=== PATIENT | male | born 1955 | race Caucasian/White ===

== ENCOUNTER 2017-05-18 13:11 | Emergency (ER) | payer BC ==
[~2017-05-18] VITALS: Ht 172.7 cm; Wt 101.5 kg
[~2017-05-18 13:11] MED LIST: ALLO100T PO; CALCTAB5 PO; COLC0.6T54 PO; FERR1TAB23 PO; FLM4 PO; METH4PAK4 PO; METO-478 PO; PANT1TAB3 PO; PRED10TA PO
[2017-05-18 13:16] VITALS: TEMP 36.4; Ht 172.7 cm; Wt 101.5 kg
[2017-05-18] MEDS ORDERED: KETOROLAC TROMETHAMINE 30 MG/ML VIAL IV STA (13:41)
[2017-05-18] MEDS ORDERED: SODIUM CHLORIDE 0.9% 1000ML 1,000 ML IV ONE (13:45)
[2017-05-18 14:12] LABS: BASO % 0.3 %; BASO ABS # 0.03 K/uL (0-0.2); EOS % 0.3 %; EOS ABS # 0.03 K/uL (0-0.5); HEMATOCRIT 29.4 % (42-52); HEMOGLOBIN 9.4 g/dL (14.0-18.0); IG# 0.03 K/uL (0.00-0.02); LYMPH % 21.9 %; LYMPH ABS # 1.91 K/uL (1.2-3.4); MEAN CORPUSCULAR HEMOGLOBIN 25.9 pg (25-34); MEAN PLATELET VOLUME 8.7 fL (7.4-10.4); MONO ABS # 0.61 K/uL (0.11-0.59); NEUT % 70.2 %; NEUT ABS # 6.13 K/uL (1.4-6.5); PLATELET COUNT 309 K/uL (130-400); RED CELL DISTRIBUTION WIDTH CV 14.8 % (11.5-14.5); RED CELL DISTRIBUTION WIDTH SD 43.6 fL (36.4-46.3); WHITE BLOOD COUNT 8.74 K/uL (4.8-10.8)
[2017-05-18] MEDS ORDERED: CALC-393 PO (14:16)
[2017-05-18] MEDS ORDERED: CIPR1TAB11 PO (14:17)
[2017-05-18] MEDS ORDERED: OMEP20CA9 PO (14:17)
--- NOTE | 2017-05-18 14:20 | DIAGNOSTIC IMAGING REPORT ---
ABD/PELVIS WITHOUT FOR STONE CT DOSE: 988.49 mGycm HISTORY: Flank pain L flank LLQ pain TECHNIQUE: Multiaxial CT images of the abdomen and pelvis were performed without the use of intravenous and oral contrast according to the standard department stone protocol. A dose lowering technique was utilized adhering to the principles of ALARA. COMPARISON STUDY: None. FINDINGS: Lung bases are clear. Liver spleen and pancreas are unremarkable. 2 mm nonobstructing calcification of the mid left kidney. Kidneys are negative for hydronephrosis. There is no evidence for an obstructing urinary tract calculus. Bowel pattern is nonobstructive. The appendix is normal. There is mild aneurysmal dilatation of the infrarenal abdominal aorta at 3.2 cm. Dilation of the colon shows evidence for moderate wall thickening of the sigmoid with several diverticuli present. There is moderate pericolonic infiltrative change suggesting a component of acute diverticulitis. There is no evidence for abscess or collection. there is moderate bladder wall thickening. Appears be a very small urachal remnant. The osseous structures show blastic bony changes throughout the thoracolumbar spine and bony pelvis suggesting potential metastatic disease. IMPRESSION: 1. Moderate acute sigmoid diverticulitis.. 2. Moderate pericolonic infiltrative change, although there is no evidence for abscess or collection. 3. Findings consistent with blastic bony metastatic change throughout the spine, bony pelvis, and hips. 4. Moderate bladder wall thickening. The above report was generated using voice recognition software. It may contain grammatical, syntax or spelling errors. Electronically signed by: Elias Bates M.D. 05/18/2017 2:18 PM Dictated Date/Time: 05/18/2017 2:11 PM
--- NOTE | 2017-05-18 14:24 | EMERGENCY ROOM VISIT NOTE ---
History First contact with patient: 13:27 Chief Complaint: FLANK PAIN Stated Complaint: BACK PAIN IN LEFT SIDE History of Present Illness The patient is a 62 year old male who presents to the Emergency Room with complaints of left lower abdominal pain has now moved to the left flank for the last several days. He describes it as a severe dull ache that comes in waves. He denies any hematuria. He has had a difficult time urinating. He denies any fever, chills, nausea or vomiting. No dizziness. No changes in bowel movements. The patient reports a history of stage IV metastatic prostate cancer. He has not taken anything for pain Review of Systems 10 system review performed and negative unless noted in HPI or below Past Medical/Surgical History Stage IV metastatic prostate cancer Social History Smoking Status: Current Every Day Smoker Alcohol Use: occasionally Drug Use: none Housing Status: lives with family Occupation Status: employed Current/Historical Medications Scheduled Allopurinol (Zyloprim), 100 MG PO DAILY Calcium Carbonate (Calcium), 600 MG PO BID Ciprofloxacin Tab (Cipro), Unknown Dose PO BID Ferrous Sulfate (Iron), 325 MG PO DAILY Metoprolol Succinate (Toprol Xl), 25 MG PO DAILY Metronidazole (Flagyl), 500 MG PO TID Omeprazole (Prilosec), 20 MG PO DAILY Prednisone Tab (Prednisone), 10 MG PO BID Tramadol Hcl (Ultram), 50 MG PO Q4H Physical Exam Vital Signs Date Time Temp Pulse Resp B/P (MAP) Pulse Ox O2 Delivery O2 Flow Rate FiO2 05/18/17 15:15 68 16 118/70 96 Room Air 05/18/17 13:16 36.4 84 18 156/67 96 Room Air Physical Exam VITALS: Vitals are noted on the nurse's note and reviewed by myself. Vital signs stable. GENERAL: 62-year-old male, in moderate discomfort,, SKIN: The skin was without rashes, erythema, edema, or bruising. HEAD: Normocephalic atraumatic. MOUTH: Mucous membranes slightly dry NECK: Supple without nuchal rigidity. . No JVD. HEART: Regular rate and rhythm without murmurs gallops or rubs. LUNGS: Clear to auscultation bilaterally without wheezes, rales or rhonchi. No accessory muscle use. ABDOMEN: Positive bowel sounds x 4.Soft, nontender, without organomegaly. No guarding or rebound tenderness. Left-sided CVA tenderness noted MUSCULOSKELETAL: No muscle atrophy, erythema, or edema noted. Strength 5/5 throughout. NEURO: Patient was alert and oriented to person place and time. Normal sensation to touch. No focal neurological deficits. Medical Decision & Procedures ER Provider Diagnostic Interpretation: CT abd/pelvis IMPRESSION: 1. Moderate acute sigmoid diverticulitis.. 2. Moderate pericolonic infiltrative change, although there is no evidence for abscess or collection. 3. Findings consistent with blastic bony metastatic change throughout the spine, bony pelvis, and hips. 4. Moderate bladder wall thickening. The above report was generated using voice recognition software. It may contain grammatical, syntax or spelling errors. Electronically signed by: Elias Bates M.D. 05/18/2017 2:18 PM Dictated Date/Time: 05/18/2017 2:11 PM The status of this report is Signed. Draft = Not yet reviewed or approved by Radiologist. Signed = Reviewed and approved by Radiologist. <AttendingPhy></AttendingPhy> <FamilyPhy>No Doctor, Assigned</FamilyPhy> < PrimaryPhy>No Doctor, Assigned</PrimaryPhy> <UnitNumber>[id number]</UnitNumber> <VisitNumber>[id number]</VisitNumber> <PatientName>LAYNE LUNSFORD</PatientName> < DateOfBirth>1955</DateOfBirth> <Location>[facility]</Location> <ServiceDate></ServiceDate> <MNE>ESINDI</MNE> <OrderingPhy>Lorie Casillas PA-C</ OrderingPhy> <OrderingPhyMNE>f rep ord dr miller</OrderingPhyMNE> <DictatingPhyMNE> f rep dict dr miller</DictatingPhyMNE> <CCListMNE>f rep ct mne</CCListMNE> < AdmittingPhyMNE>f pt admit dr miller</AdmittingPhyMNE> <AttendingPhyMNE>f pt attend dr miller</AttendingPhyMNE> <ConsultingPhyMNE>f pt consult dr miller</ConsultingPhyMNE> <FamilyPhyMNE>f pt fam dr miller</FamilyPhyMNE> <OtherPhyMNE>f pt other dr mne</OtherPhyMNE> < PrimaryPhyMNE>f pt prim care mne</PrimaryPhyMNE> <ReferringPhyMNE>f pt referring dr mne</ReferringPhyMNE> Laboratory Results 05/18/17 14:00 Red Blood Count 3.63, Mean Corpuscular Volume 81.0, Mean Corpuscular Hemoglobin 25.9, Mean Corpuscular Hemoglobin Concent 32.0, Mean Platelet Volume 8.7, Neutrophils (%) (Auto) 70.2, Lymphocytes (%) (Auto) 21.9, Monocytes (%) (Auto) 7.0, Eosinophils (%) (Auto) 0.3, Basophils (%) (Auto) 0.3, Neutrophils # (Auto) 6.13, Lymphocytes # (Auto) 1.91, Monocytes # (Auto) 0.61, Eosinophils # (Auto) 0.03, Basophils # (Auto) 0.03 05/18/17 14:00 Test 05/18/17 14:00 05/18/17 14:29 White Blood Count 8.74 K/uL (4.8-10.8) Red Blood Count 3.63 M/uL (4.7-6.1) Hemoglobin 9.4 g/dL (14.0-18.0) Hematocrit 29.4 % (42-52) Mean Corpuscular Volume 81.0 fL (80-100) Mean Corpuscular Hemoglobin 25.9 pg (25-34) Mean Corpuscular Hemoglobin Concent 32.0 g/dl (32-36) Platelet Count 309 K/uL (130-400) Mean Platelet Volume 8.7 fL (7.4-10.4) Neutrophils (%) (Auto) 70.2 % Lymphocytes (%) (Auto) 21.9 % Monocytes (%) (Auto) 7.0 % Eosinophils (%) (Auto) 0.3 % Basophils (%) (Auto) 0.3 % Neutrophils # (Auto) 6.13 K/uL (1.4-6.5) Lymphocytes # (Auto) 1.91 K/uL (1.2-3.4) Monocytes # (Auto) 0.61 K/uL (0.11-0.59) Eosinophils # (Auto) 0.03 K/uL (0-0.5) Basophils # (Auto) 0.03 K/uL (0-0.2) RDW Standard Deviation 43.6 fL (36.4-46.3) RDW Coefficient of Variation 14.8 % (11.5-14.5) Immature Granulocyte % (Auto) 0.3 % Immature Granulocyte # (Auto) 0.03 K/uL (0.00-0.02) Anion Gap 7.0 mmol/L (3-11) Est Creatinine Clear Calc Drug Dose 98.6 ml/min Estimated GFR () 104.4 Estimated GFR (Non- 90.1 BUN/Creatinine Ratio 13.1 (10-20) Calcium Level 8.3 mg/dl (8.5-10.1) Total Bilirubin 0.2 mg/dl (0.2-1) Aspartate Amino Transf (AST/SGOT) 10 U/L (15-37) Alanine Aminotransferase (ALT/SGPT) 14 U/L (12-78) Alkaline Phosphatase 141 U/L (45-117) Total Protein 7.5 gm/dl (6.4-8.2) Albumin 3.1 gm/dl (3.4-5.0) Globulin 4.4 gm/dl (2.5-4.0) Albumin/Globulin Ratio 0.7 (0.9-2) Urine Color YELLOW Urine Appearance CLEAR (CLEAR) Urine pH 8.0 (4.5-7.5) Urine Specific [place] 1.018 (1.000-1.030) Urine Protein NEG (NEG) Urine Glucose (UA) 1+ (NEG) Urine Ketones NEG (NEG) Urine Occult Blood NEG (NEG) Urine Nitrite NEG (NEG) Urine Bilirubin NEG (NEG) Urine Urobilinogen NEG (NEG) Urine Leukocyte Esterase NEG (NEG) Medications Administered Medications (Trade) Dose Ordered Sig/Toño Route Start Time Stop Time Status Last Admin Dose Admin Ketorolac Tromethamine (Toradol Inj) 30 mg NOW STAT IV 05/18/17 13:41 05/18/17 13:47 DC 05/18/17 13:56 30 MG Sodium Chloride 1,000 ml @ 999 mls/hr Q1H1M ONCE IV 05/18/17 13:45 05/18/17 14:45 DC 05/18/17 13:57 999 MLS/HR Metronidazole (Flagyl Tab) 500 mg NOW STAT PO 05/18/17 15:09 05/18/17 15:10 DC 05/18/17 15:19 500 MG ED Course Patient was seen and examined Vital signs including blood pressure were reviewed medications list was verified with patient Labs were obtained, and a saline lock was established The patient was medicated with Toradol and hydrated with 1 L of normal saline Upon reevaluation, the patient said the pain was slightly better. We discussed his workup. He voiced understanding. The case was also discussed with my supervising physician who is in agreement with my plan. The patient was given 1 dose of Flagyl I reviewed discharge instructions the patient. They voiced understanding and had no further questions. Medical Decision Differential diagnosis: Ureteral stone, pyelonephritis, UTI, pain secondary to malignancy, diverticulitis This patient is a 62-year-old male presents to the emergency department with severe left flank pain and lower abdominal pain. In addition, he has had urinary symptoms. On exam, he had left flank tenderness. My first thought was this was possibly a ureteral stone. I ordered a CT scan. This is consistent with moderate sigmoid diverticulitis. His urinalysis is clean. There are no signs of abscess or perforation. It is possible that his urinary symptoms are due to his prostate CA. The patient says that the pain is tolerable. He is also tolerating p.o. He is afebrile. There is no leukocytosis. I believe it is reasonable to discharge him home on oral antibiotics with close follow-up. He is comfortable with this plan. The patient has been taking Cipro for the last 2 days as he called his doctor, and this was thought to possibly be a urinary tract infection. His Cipro course is 10 days. I will add a 10 day course of Flagyl. He has a follow-up appointment scheduled 4 days from now with his oncologist. He will have his abdomen rechecked at that point. He is also in agreement to return with any worsening symptoms. This chart was completed in part utilizing [employer] Voice Recognition software. Attempts were made to minimize the grammatical errors, random word insertions, pronoun errors and incomplete sentences. Any formal questions or concerns about the content, text or information contained within the body of this dictation should be directly addressed to the provider for clarification. Medication Reconcilliation Current Medication List: was personally reviewed by me Blood Pressure Screening Patient's blood pressure: Elevated blood pressure Blood pressure disposition: Elevated BP felt to be situational Impression Primary Impression: Diverticulitis large intestine Departure Information Dispostion Home / Self-Care Condition GOOD Prescriptions Tramadol Hcl (ULTRAM) 50 Mg Tab 50 MG PO Q4H for Pain, #20 TAB PRN PAIN Prov: Lorie Casillas PA-C 05/18/17 Metronidazole (FLAGYL) 500 Mg Tab 500 MG PO TID, #19 TAB Prov: Lorie Casillas PA-C 05/18/17 Referrals No Doctor, Assigned (PCP) Patient Instructions Diverticulitis Dc, My [facility] Additional Instructions You have been evaluated in the emergency department for left flank pain and lower abdominal pain. A CAT scan reveals diverticulitis of the sigmoid colon Please continue Cipro as prescribed. Please make sure that this is at least a 10 day course of antibiotics. If it is not, please call back to the emergency department. A prescription will be provided. [phone] Please take the entire course of Flagyl as prescribed. Please do not drink alcohol with this medication. Please try to stay well hydrated. Ibuprofen 600 mg and/or Tylenol 1000 mg every 8 hours. You may also alternate these medications for more effective pain relief: Ibuprofen --4 HRS--> Tylenol --4 HRS--> ibuprofen --4 HRS--> Tylenol .... Please also take tramadol 1 tab every 4 hours as needed for severe pain. This may be taken with Tylenol and ibuprofen. Please do not hesitate to return to the emergency department with any new, worsening or concerning symptoms; especially, fever, vomiting or worsening pain It was a pleasure participating in your care this afternoon Work Instructions Return To Work: 2 days
[2017-05-18 14:29] LABS: ALBUMIN 3.1 gm/dl (3.4-5.0); CALCIUM 8.3 mg/dl (8.5-10.1); CREATININE 0.92 mg/dl (0.60-1.40); POTASSIUM 3.7 mmol/L (3.5-5.1)
[2017-05-18 14:32] LABS: TOTAL PROTEIN 7.5 gm/dl (6.4-8.2)
[2017-05-18] MEDS ORDERED: METRONIDAZOLE 250 MG TAB PO STA (15:09)
[2017-05-18 15:15] VITALS: BP 118/70; PULSE 68; O2SAT 96
[2017-05-18] MEDS ORDERED: TRAM-453 PO (15:23)
[2017-05-18] MEDS ORDERED: METR500T PO (15:23)
== END 2017-05-18 15:47 | disposition home or self-care (01) ==
LOC: C.EDB 13:13
DX: K57.32 Diverticulitis of large intestine without perforation or abscess without bleeding (principal); C61 Malignant neoplasm of prostate; F17.200 Nicotine dependence, unspecified, uncomplicated